=== PATIENT | female | born 1995 | race Caucasian/White ===

== ENCOUNTER 2017-04-08 16:51 | Emergency (ER) | payer OTHER ==
[~2017-04-08] VITALS: Ht 157.5 cm; Wt 83.9 kg
[~2017-04-08 16:51] MED LIST: ALBU90OI INH; Bactrim Ds Tab1 EACH PO; FOLI1 PO; Norco 5-325 Ta1 EACH PO; PROM25 PO; Pyridium100 MG PO; QVAR7.3 G1 IH; Verotin-Gr Cap1 EACH PO; Zofran Odt4 MG SL
[2017-04-08] MEDS ORDERED: Verotin-Gr Cap1 EACH PO (17:11)
[2017-04-08] MEDS ORDERED: SLOW FE142 MG PO (17:12)
[2017-04-08] MEDS ORDERED: ALBU90OI6 INH (19:52)
[2017-04-08] MEDS ORDERED: QNASL8.7 GM INH (19:53)
== END 2017-04-08 23:45 | disposition home or self-care (01) ==
LOC: ER 16:51
DX: R07.81 Pleurodynia (principal); Z88.6 Allergy status to analgesic agent; Z88.8 Allergy status to other drugs, medicaments and biological substances; Z79.899 Other long term (current) drug therapy; J45.909 Unspecified asthma, uncomplicated; G43.909 Migraine, unspecified, not intractable, without status migrainosus
CPT/HCPCS: 71046; 71260; 81000; 81025; 85379; 93005; 93010; 96360; 99284; J7030; Q9967